=== PATIENT | male | born 1945 | race Caucasian/White ===

== ENCOUNTER → 2021-11-10 | Outpatient (CLI) | payer MEDICARE ==
[~2021-11-10] MED LIST: TAMS.4ER PO
== END | disposition home or self-care (01) ==
LOC: LAB SHORT 12:53
DX: L82.0 Inflamed seborrheic keratosis (principal)
CPT/HCPCS: 88305

== ENCOUNTER 2022-02-28 23:14 | Observation (INO) | payer MEDICARE ==
[~2022-02-28] VITALS: Ht 170.2 cm; Wt 81.7 kg
[2022-02-28 23:36] LABS: BASOPHILS ABSOLUTE AUTO 0.06 K/mm3 (0.00-0.23); BASOPHILS PERCENT AUTO 1 % (0-2); EOSINOPHILS ABSOLUTE AUTO 0.33 K/mm3 (0.00-0.68); EOSINOPHILS PERCENT AUTO 4 % (0-6); IMMATURE GRAN ABSOLUTE AUTO 0.03 K/mm3 (0.00-0.10); IMMATURE GRAN PERCENT AUTO 0 % (0-1); LYMPHOCYTES ABSOLUTE AUTO 2.47 K/mm3 (0.84-5.20); LYMPHOCYTES PERCENT AUTO 30 % (21-46); MONOCYTES ABSOLUTE AUTO 0.87 K/mm3 (0.16-1.47); MONOCYTES PERCENT AUTO 11 % (4-13); Mean Corpuscular HGB 30.6 pg (26.0-34.0); Mean Corpuscular HGB Conc 34.1 g/dL (31.5-36.5); Mean Corpuscular Volume 90 fL (80-100); Mean Platelet Volume 9.9 fL (9.1-12.4); NEUTROPHILS ABSOLUTE AUTO 4.48 K/mm3 (1.96-9.15); NEUTROPHILS PERCENT AUTO 54 % (41-73); Platelet Count 223 K/mm3 (150-400); RDW Standard Deviation 42.1 fL (35.1-46.3); Red Blood Cell Count 4.57 M/mm3 (4.30-5.90); White Blood Cell Count 8.24 K/mm3 (4.00-11.30)
[2022-02-28 23:48] LABS: Albumin, Blood 4.3 g/dL (3.4-5.0); Albumin/Globulin Ratio 1.3 (0.8-1.8); Bilirubin, Total 0.9 mg/dL (0.1-1.0); Bun/Creatinine Ratio 19.2 (12.0-20.0); Calcium, Blood 9.5 mg/dL (8.5-10.1); Creatinine, Blood 0.94 mg/dL (0.60-1.20); Globulin, Blood 3.2 g/dL (2.2-4.0); Potassium, Blood 3.3 mmol/L (3.5-5.5); Total Protein, Blood 7.5 g/dL (6.4-8.2)
[2022-03-01] MEDS ORDERED: METO100ER PO (01:47)
[2022-03-01] MEDS ORDERED: ATOR80 PO (01:47)
[2022-03-01] MEDS ORDERED: Enalapril Male2.5 MG PO (01:47)
[2022-03-01] MEDS ORDERED: Aspir 8181 MG PO (01:48)
[2022-03-01] MEDS ORDERED: GLUCHON PO (01:48)
[2022-03-01] MEDS ORDERED: Saw Palmetto160 MG PO (01:50)
--- NOTE | 2022-03-01 04:52 | NUR ---
ADMISSION NOTE PT ADMITTED FROM ED AT 0230. NS STARTED AT 75ML/HR. PT INDEPENDENT IN THE ROOM. PLEASANT AND COOPERATIVE. PT BEGAN HAVING L SIDED CP AT 2130 LAST NIGHT. PT HAS BEEN HAVING SOME RECENT STRESS. 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 PT ON TELE, SINUS IN 60'S-70'S.
[2022-03-01 08:02] LABS: BASOPHILS ABSOLUTE AUTO 0.06 K/mm3 (0.00-0.23); BASOPHILS PERCENT AUTO 1 % (0-2); EOSINOPHILS ABSOLUTE AUTO 0.29 K/mm3 (0.00-0.68); EOSINOPHILS PERCENT AUTO 6 % (0-6); Hematocrit 45.4 % (37.0-53.0); IMMATURE GRAN ABSOLUTE AUTO 0.02 K/mm3 (0.00-0.10); IMMATURE GRAN PERCENT AUTO 0 % (0-1); LYMPHOCYTES ABSOLUTE AUTO 1.52 K/mm3 (0.84-5.20); LYMPHOCYTES PERCENT AUTO 29 % (21-46); MONOCYTES ABSOLUTE AUTO 0.37 K/mm3 (0.16-1.47); MONOCYTES PERCENT AUTO 7 % (4-13); Mean Corpuscular HGB 30.4 pg (26.0-34.0); Mean Corpuscular Volume 92 fL (80-100); Mean Platelet Volume 9.7 fL (9.1-12.4); NEUTROPHILS ABSOLUTE AUTO 3.06 K/mm3 (1.96-9.15); NEUTROPHILS PERCENT AUTO 57 % (41-73); Platelet Count 221 K/mm3 (150-400); RDW Standard Deviation 43.3 fL (35.1-46.3); Red Blood Cell Count 4.94 M/mm3 (4.30-5.90); White Blood Cell Count 5.32 K/mm3 (4.00-11.30)
[2022-03-01 08:15] LABS: CPK Creatine Kinase 232 U/L (39-308)
[2022-03-01 08:22] LABS: Albumin, Blood 4.4 g/dL (3.4-5.0); Albumin/Globulin Ratio 1.3 (0.8-1.8); Bilirubin, Total 1.3 mg/dL (0.1-1.0); Bun/Creatinine Ratio 14.4 (12.0-20.0); Calcium, Blood 9.7 mg/dL (8.5-10.1); Creatinine, Blood 0.9 mg/dL (0.60-1.20); Globulin, Blood 3.4 g/dL (2.2-4.0); Potassium, Blood 4.1 mmol/L (3.5-5.5); Total Protein, Blood 7.8 g/dL (6.4-8.2)
[2022-03-01 15:58] LABS: CPK Creatine Kinase 179 U/L (39-308)
--- NOTE | 2022-03-01 17:46 | NUR ---
DAY SHIFT SUMMARY 76 YR OLD MALE PT WHO CAME IN WITH CHEST PAIN. TROPONINS GOING FROM 293 TO 433 TO 343 SINCE ARRIVAL. CARDIAC CONSULT TODAY. 1 DAY STRESS TEST SCHEDULED FOR TOMORROW. PT EXPERIENCED A 10 BEAT RUN OF V-TACH AT 1330 TODAY WITH OUT SYMPTOM. PT TO BE NPO AFTER MIDNING AND NO CAFFIEN AFTER 1999. ATIVAN ADDED TO EMAR DUE TO ANXIETY. PT STATES HE BELIEVES HIS LEVEL OF ANXIETY IS CONTRIBUTING TO ELEVEATED BP AND CHEST PAIN, BUT HAS BEEN UNADDRESSED UNTIL NOW. PER PT HE HAS NOT BEEN MEDICATED IN THE PAST FOR ANXIETY. TELE WITH NSR AT 73. CALL LIGHT WITHIN REACH AND ABLE TO CALL APPROPRIATELY.
--- NOTE | 2022-03-01 22:42 | NUR ---
NURSE NOTE: MAEVE JADE CONTACTED TO CLARIFY APPROPRIATE TO ADMINISTER SCHEDULED VASOTEC WITH PENDING STRESS TEST SCHEDULED IN THE MORNING. APPROVED APPROPRIATE TO ADMINISTER THIS MEDICATION AT THIS TIME.
--- NOTE | 2022-03-02 05:14 | NUR ---
SHIFT SUMMARY: PATIENT A/O X4, ADLIB IN ROOM, CALLS APPROPRIATELY. NO CHEST PAIN THROUGHOUT THE NIGHT. NO CAFFEINE GIVEN AND NPO POST MIDNIGHT FOR PENDING STRESS TEST.
[2022-03-02] MEDS ORDERED: ENAL10 PO (16:11)
[2022-03-02] MEDS ORDERED: OMEP20ER PO (16:12)
[2022-03-02] MEDS ORDERED: FURO20 PO (16:12)
--- NOTE | 2022-03-02 17:15 | NUR ---
DC HOME PT DC'D HOME. PIV DC'D WITH CATH TIP INTACT. NO REDNESS OR SWELLING AT SITE. DC INSTRUCTIONS GIVEN TO PT. ALL QUESTIONS & CONCERNS ANSWERED. NEW MEDICATIONS FAXED TO [facility].
== END 2022-03-02 17:10 | disposition home or self-care (01) ==
LOC: ER 23:14 → MEDS 23:15
PROVIDERS: Emergency Medicine; ADMIT Internal Medicine
DX: R07.2 Precordial pain (principal); I25.2 Old myocardial infarction; E87.6 Hypokalemia; I25.10 Atherosclerotic heart disease of native coronary artery without angina pectoris; I10 Essential (primary) hypertension; F41.1 Generalized anxiety disorder; Z88.8 Allergy status to other drugs, medicaments and biological substances; Z87.891 Personal history of nicotine dependence; Z95.1 Presence of aortocoronary bypass graft; I49.3 Ventricular premature depolarization
CPT/HCPCS: 36415; 71045; 78452; 80053; 82550; 83880; 84484; 85025; 93005; 93010; 93017; 96372; 96374; 96375; 99285-25; A9270; A9500; G0378; J0280; J0706; J1650; J2270; J2405; J2785; J7030

== ENCOUNTER 2022-04-11 18:26 | Emergency (ER) | payer MEDICARE ==
[~2022-04-11] VITALS: Ht 170.2 cm; Wt 79.4 kg
[~2022-04-11 18:26] MED LIST changes: +ATOR80 PO; +Aspir 8181 MG PO; +ENAL10 PO; +Enalapril Male2.5 MG PO; +FURO20 PO; +GLUCHON PO; +METO100ER PO; +OMEP20ER PO; +Saw Palmetto160 MG PO
[2022-04-11] MEDS ORDERED: KLOR-CON M1010 MEQ PO (18:40)
[2022-04-11 18:55] LABS: BASOPHILS ABSOLUTE AUTO 0.08 K/mm3 (0.00-0.23); BASOPHILS PERCENT AUTO 1 % (0-2); EOSINOPHILS PERCENT AUTO 5 % (0-6); Hematocrit 43.4 % (37.0-53.0); Hemoglobin 14.7 g/dL (13.5-17.5); IMMATURE GRAN ABSOLUTE AUTO 0.03 K/mm3 (0.00-0.10); IMMATURE GRAN PERCENT AUTO 0 % (0-1); LYMPHOCYTES ABSOLUTE AUTO 2.63 K/mm3 (0.84-5.20); LYMPHOCYTES PERCENT AUTO 30 % (21-46); MONOCYTES PERCENT AUTO 8 % (4-13); Mean Corpuscular HGB 29.9 pg (26.0-34.0); Mean Corpuscular HGB Conc 33.9 g/dL (31.5-36.5); Mean Corpuscular Volume 88 fL (80-100); Mean Platelet Volume 9.8 fL (9.1-12.4); NEUTROPHILS ABSOLUTE AUTO 4.84 K/mm3 (1.96-9.15); NEUTROPHILS PERCENT AUTO 56 % (41-73); Platelet Count 227 K/mm3 (150-400); RDW Coefficient Variation 12.8 % (11.7-14.2); RDW Standard Deviation 41.5 fL (35.1-46.3); Red Blood Cell Count 4.92 M/mm3 (4.30-5.90); White Blood Cell Count 8.68 K/mm3 (4.00-11.30)
== END 2022-04-11 23:08 | disposition home or self-care (01) ==
LOC: ER 18:26
PROVIDERS: Student in an Organized Health Care Education/Training Program
DX: I10 Essential (primary) hypertension (principal); E78.5 Hyperlipidemia, unspecified; I25.2 Old myocardial infarction; I25.10 Atherosclerotic heart disease of native coronary artery without angina pectoris; Z95.1 Presence of aortocoronary bypass graft; Z88.8 Allergy status to other drugs, medicaments and biological substances; Z79.899 Other long term (current) drug therapy; Z79.82 Long term (current) use of aspirin
CPT/HCPCS: 36415; 71046; 83690; 84484; 85025; 93005; 93010; 99284-25; A9270

== ENCOUNTER 2024-11-12 11:41 | Inpatient (IN) | payer MEDICARE, OTHER ==
[~2024-11-12] VITALS: Ht 172.7 cm; Wt 93.5 kg
[~2024-11-12 11:41] MED LIST changes: +KLOR-CON M1010 MEQ PO
[2024-11-12 12:18] LABS: BASOPHILS ABSOLUTE AUTO 0.09 K/mm3 (0.00-0.23); BASOPHILS PERCENT AUTO 1 % (0-2); EOSINOPHILS ABSOLUTE AUTO 0.32 K/mm3 (0.00-0.68); EOSINOPHILS PERCENT AUTO 5 % (0-6); Hematocrit 41.1 % (37.0-53.0); Hemoglobin 14.1 g/dL (13.5-17.5); IMMATURE GRAN ABSOLUTE AUTO 0.02 K/mm3 (0.00-0.10); IMMATURE GRAN PERCENT AUTO 0 % (0-1); LYMPHOCYTES ABSOLUTE AUTO 1.79 K/mm3 (0.84-5.20); LYMPHOCYTES PERCENT AUTO 26 % (21-46); MONOCYTES ABSOLUTE AUTO 0.69 K/mm3 (0.16-1.47); MONOCYTES PERCENT AUTO 10 % (4-13); Mean Corpuscular HGB 31.3 pg (26.0-34.0); Mean Corpuscular HGB Conc 34.3 g/dL (31.5-36.5); Mean Corpuscular Volume 91 fL (80-100); Mean Platelet Volume 9.8 fL (9.1-12.4); NEUTROPHILS ABSOLUTE AUTO 3.94 K/mm3 (1.96-9.15); NEUTROPHILS PERCENT AUTO 58 % (41-73); Platelet Count 214 K/mm3 (150-400); RDW Coefficient Variation 13.2 % (11.7-14.2); RDW Standard Deviation 43.3 fL (35.1-46.3); White Blood Cell Count 6.85 K/mm3 (4.00-11.30)
[2024-11-12 12:39] LABS: Albumin/Globulin Ratio 1.1 (0.8-1.8); Bun/Creatinine Ratio 17.3 (12.0-20.0); Creatinine, Blood 0.99 mg/dL (0.60-1.20); Globulin, Blood 3.5 g/dL (2.2-4.0); Potassium, Blood 4.1 mmol/L (3.5-5.5); Total Protein, Blood 7.5 g/dL (6.4-8.2)
[2024-11-12] MEDS ORDERED: Aspirin 81 MG Chew PO ONE (14:10)
[2024-11-12] MEDS ORDERED: Nitroglycerin 0.4 MG SUBL SL PRN (14:15)
[2024-11-12] MEDS ORDERED: Ondansetron HCl 2 MG / ML 2ML Vial IV PRN (19:35)
[2024-11-12 21:39] VITALS: BP 181/89
[2024-11-12] MEDS ORDERED: Carvedilol 6.25 MG Tab PO SCH (22:00)
[2024-11-12] MEDS ORDERED: Isosorbide Mononitrate 30 MG TABCR PO SCH (22:00)
[2024-11-12] MEDS ORDERED: Clopidogrel Bisulfate 300 MG Cap PO ONE (22:00)
[2024-11-12] MEDS ORDERED: Clopidogrel Bisulfate 75 MG Tab PO ONE (22:35)
[2024-11-12 23:30] LABS: Anti-Xa UFH, PHA Monitoring <0.10 IU/mL; International Normalized Ratio 1.02; Prothrombin Time Results 10.9 Sec (9.7-11.5)
[2024-11-12] MEDS ORDERED: Dose Adjust by Pharmacy XX STA (23:32)
[2024-11-12] MEDS ORDERED: Heparin Sodium 5000 Units/ML 1ML MDV IV ONE (23:35)
[2024-11-12] MEDS ORDERED: Heparin Sodium,Porcine/0.5 NS 500 ML IV SCH (23:35)
[2024-11-13] VITALS (15 sets, daily range): BP systolic 96–139; BP diastolic 54–87
--- NOTE | 2024-11-13 00:47 | NUR ---
TRANSFER SUMMARY: PT AOX4 IND, STOOD UP AND TRANSFERRED SELF INTO BED. ABLE TO PROVIDE ACCURATE INFORMATION AND TOLERATING MEDICATIONS WELL. ORIENTED TO ROOM, AND INSTRUCTED TO CALL IF ANY CHANGES IN THEIR CP OR IF ANY OTHER CONDITIONS ARISE. PT FOLLOWS COMMANDS AND ABLE TO MAKE NEEDS KNOWN. HEPARIN DRIP STARTED PER PHARMACY. PT RESTING IN BED, BED IN LOWEST POSITION CALL LIGHT IN REACH.
--- NOTE | 2024-11-13 05:08 | NUR ---
SHIFT SUMMARY: PT AOX4 PLEASANT MOOD AND AFFECT. CURRENTLY ON A HEPARIN DRIP. PT TOLERATING MEDICATIONS WELL. SLEPT THROUGH THE NIGHT WITH NO COMPLAINTS. HAD A 6 RUN OF V TACH, BUT OTHERWISE UN EVENTFUL NIGHT. PT IS IND IN THE ROOM AND CALLS APPROPRIATELY. IS ABLE TO MAKE NEEDS KNOWN. PT IN BED SLEEPING, BED IN LOWEST POSITION, CALL LIGHT IN REACH. CONTINUING CARE.
[2024-11-13 06:19] LABS: Hematocrit 37.5 % (37.0-53.0); Hemoglobin 12.8 g/dL (13.5-17.5); Mean Platelet Volume 9.8 fL (9.1-12.4); Platelet Count 204 K/mm3 (150-400)
[2024-11-13] MEDS ORDERED: Clopidogrel Bisulfate 75 MG Tab PO SCH (07:00)
[2024-11-13] MEDS ORDERED: Dose Adjust by Pharmacy XX STA (07:07)
[2024-11-13] MEDS ORDERED: Aspirin 81 MG Chew PO SCH (09:00)
[2024-11-13] MEDS ORDERED: Atorvastatin 40 MG Tab PO SCH (09:00)
[2024-11-13] MEDS ORDERED: Metoprolol Succinate 50 MG TABCR PO SCH (09:00)
[2024-11-13] MEDS ORDERED: Enoxaparin 40 MG/0.4 ML SYR SC SCH (09:00)
[2024-11-13] MEDS ORDERED: Heparin Sodium 1000 Units/ML 10ML MDV ONE (11:01)
[2024-11-13] MEDS ORDERED: NS 250 ML IV ONE (11:01)
[2024-11-13] MEDS ORDERED: NS 1,000 ML IV ONE ×2 (11:01→11:54)
[2024-11-13] MEDS ORDERED: FentaNYL Citrate 50 MCG/ML 2 ML Injection ONE (11:53)
[2024-11-13] MEDS ORDERED: Midazolam HCl 1MG / ML 2ML Vial ONE (11:54)
--- NOTE | 2024-11-13 13:30 | NUR ---
PATIENT TO RECOVERY ROOM AT 1315 S/P CORONARY ANGIOGRAM. PT AWAKE AND ALERT, DENIES C/O PAIN/CHEST PAIN. ANGIOSEAL TO RIGHT GROIN, WNL. SITE SOFT, NONTENDER, WITHOUT SWELLING OR BLEEDING. +2 PULSES TO RIGHT DP/PT. PT SUPINE. VSS.
--- NOTE | 2024-11-13 13:51 | NUR ---
PT LAYING FLAT, FOLLOWING DIRECTIONS. PT GIVEN ICE CHIPS, REFUSING FOOD AT THIS TIME. R GORIN SOFT, NON-TENDER, NO BLEEDING OR HEMATOMA NOTED. VSS. WAITING FOR PCU BED.
--- NOTE | 2024-11-13 14:19 | NUR ---
R GROIN SITE SOFT,NON TENDER. PT SAT UP AT 30 DEGREES. PT EATING SNACKS. HEAT PAD TO R SHOULDER FOR CHRONIC PAIN CONTROL. DENIES OTHER NEEDS AT THIS TIME.
--- NOTE | 2024-11-13 15:00 | NUR ---
PT TX TO PCU WITH MONTIOR IN PLACE. PT ALERT AND ORIENTED. R GROIN SITE SOFT, NON TENDER. REPORT GIVEN TO FRANCES JANG, SITE REVIEWED.
--- NOTE | 2024-11-13 15:15 | NUR ---
Pt received from [facility], alert, oriented and conversant. Transferred from stretcher to the bed in PCU 1 while keeping HOB less than 30 degrees and legs straight. Normal sinus rhythm noted by telemetry, and vital signs stable. Pt denies pain except for right shoulder which was relieved somewhat after transfer and pt was provided a heating pad for relief. Pt has chronic shoulder problem he says but it got worse during angiogram. Right groin site per report has angioseal and the pt has been in recovery in [facility] for 2 hours upon arrival to PCU 1. Groin site is without bruising, bleeding nor hematoma. Soft and non tender, with distal pulses palpable and brisk cap refill in bilateral lower extremities. Pt was instructed to keep HOB no higher than 30 degress and ongoing recovery will take about 4 hours before he can get up out of bed. States that he already ate; given ice water and also accessible urinal to void if needed. Call light is within reach. Dr. Kahn was here and spoke with the patient.
--- NOTE | 2024-11-13 16:00 | NUR ---
arrival to pcu patient arrived to pcu from [facility] [employer] [facility] [employer] with a right groin site that is soft nontender, no bleeding, no hematoma, or swelling. patient had been recovered for two hours at [facility] [employer] [facility] [employer] with only two hours remaining until patient can get up. patient head of bed has been elevated and site remains soft nontender with no bleeding or hematoma. patient vital signs stable and tele sinus rhythm 60s. patient is alert and oriented x4. neuro is intact. perrla. patient uses a cane or walker at baseline as needed and has this equipment at home. lung sounds clear throughout. patient voids independently using a bedside urinal. see shift assessment for further detials. plan remains up to date at this time
--- NOTE | 2024-11-13 17:05 | NUR ---
shift summary vital signs remains stable. right groin site remains unchanged, soft nontender, no hematoma swelling or bleeding. no acute changes since arrival see previous notes. plan remains up to date
--- NOTE | 2024-11-13 17:30 | NUR ---
"Spiritual Care | Pt. Request Pt. is in bed and welcomes my visit. Pt. verbalizes gratitude for the spiritual care visit but also verbalizes that his dinner just arrived and he is a practiciing Jew. Mary with interest and empathy. This electrical fitter asked the Pt. if he would like me to contact the [employer] Sales Representative. Pt. declined but verbalized gratitude for the good work the chaplains are doing."
[2024-11-14 00:21] VITALS: BP 138/74
[2024-11-14 04:17] LABS: BASOPHILS ABSOLUTE AUTO 0.05 K/mm3 (0.00-0.23); BASOPHILS PERCENT AUTO 1 % (0-2); EOSINOPHILS ABSOLUTE AUTO 0.24 K/mm3 (0.00-0.68); EOSINOPHILS PERCENT AUTO 5 % (0-6); Hematocrit 36.8 % (37.0-53.0); Hemoglobin 12.6 g/dL (13.5-17.5); IMMATURE GRAN ABSOLUTE AUTO 0.02 K/mm3 (0.00-0.10); IMMATURE GRAN PERCENT AUTO 0 % (0-1); LYMPHOCYTES ABSOLUTE AUTO 0.92 K/mm3 (0.84-5.20); LYMPHOCYTES PERCENT AUTO 18 % (21-46); MONOCYTES ABSOLUTE AUTO 0.53 K/mm3 (0.16-1.47); MONOCYTES PERCENT AUTO 11 % (4-13); Mean Corpuscular HGB 31.1 pg (26.0-34.0); Mean Corpuscular HGB Conc 34.2 g/dL (31.5-36.5); Mean Corpuscular Volume 91 fL (80-100); Mean Platelet Volume 9.8 fL (9.1-12.4); NEUTROPHILS ABSOLUTE AUTO 3.23 K/mm3 (1.96-9.15); NEUTROPHILS PERCENT AUTO 65 % (41-73); Platelet Count 173 K/mm3 (150-400); RDW Standard Deviation 42.6 fL (35.1-46.3); Red Blood Cell Count 4.05 M/mm3 (4.30-5.90); White Blood Cell Count 4.99 K/mm3 (4.00-11.30)
[2024-11-14 04:45] LABS: Albumin, Blood 3.4 g/dL (3.4-5.0); Albumin/Globulin Ratio 1.1 (0.8-1.8); Bilirubin, Total 1.2 mg/dL (0.1-1.0); Bun/Creatinine Ratio 16.9 (12.0-20.0); Calcium, Blood 8.9 mg/dL (8.5-10.1); Creatinine, Blood 0.95 mg/dL (0.60-1.20); Potassium, Blood 4.1 mmol/L (3.5-5.5); Total Protein, Blood 6.4 g/dL (6.4-8.2)
[2024-11-14 05:38] VITALS: BP 152/74
--- NOTE | 2024-11-14 06:20 | NUR ---
PT STABLE THROUGHOUT THE SHIFT. NO C/O CHEST PAIN OR DYSPNEA. PT AOX4, IND/SBA. RT GROIN ANGIO SITE REMAINS CLEAN/DRY/INTACT W/O S/S HEMATOMA/BLEEDING. DISTAL CMS INTACT.
[2024-11-14 07:19] VITALS: BP 146/76
[2024-11-14] MEDS ORDERED: CARV6.25 PO (09:45)
[2024-11-14 11:00] VITALS: BP 124/71
[2024-11-14] MEDS ORDERED: Isosorbide Mono30 MG PO (11:00)
--- NOTE | 2024-11-14 11:09 | NUR ---
discharge note this rn assumed care at 0700. vital signs stable. tele sinus rhythm first degree 80s. patient is alert and oriented x4. neuro is intact. perrla. patient is independent in the room. patient is able to make needs known and uses call light appropriately. patient denies pain, chest pain/pressure or shortness of breath. see shift assessment for further detials. right groin site is soft nontender no hematoma present. Md Mancilla in to see patient and discussed plans to go home today and medications to take. This rn spoke with MD EID and updated MD Mancilla on meds to continue at discharge. Discharge orders placed. This rn went over discharge with patient and new medications, medications to stop, and follow up appointments. patient verbalized understanding. patient left with all belongings and in no distress.
== END 2024-11-14 11:08 | disposition home or self-care (01) | DRG 287 ==
LOC: ER 11:41 → MEDS 11:42 → ERHOLD 11:42 → MEDS 21:34 → PCU 11-13 14:39 → ENPENDDIS 11-14 12:00
PROVIDERS: Family Medicine; Physician Assistant; Student in an Organized Health Care Education/Training Program; ADMIT Internal Medicine
PROC: B2111ZZ Fluoroscopy of Multiple Coronary Arteries using Low Osmolar Contrast (ICD-10-PCS; principal; 2024-11-13)
PROC: 4A023N7 Measurement of Cardiac Sampling and Pressure, Left Heart, Percutaneous Approach (ICD-10-PCS; 2024-11-13)
PROC: B2121ZZ Fluoroscopy of Single Coronary Artery Bypass Graft using Low Osmolar Contrast (ICD-10-PCS; 2024-11-13)
PROC: B2181ZZ Fluoroscopy of Left Internal Mammary Bypass Graft using Low Osmolar Contrast (ICD-10-PCS; 2024-11-13)
DX: R07.89 Other chest pain (principal); I50.32 Chronic diastolic (congestive) heart failure; I47.20 Ventricular tachycardia, unspecified; I25.10 Atherosclerotic heart disease of native coronary artery without angina pectoris; E78.5 Hyperlipidemia, unspecified; E11.9 Type 2 diabetes mellitus without complications; I11.0 Hypertensive heart disease with heart failure; G56.03 Carpal tunnel syndrome, bilateral upper limbs; I87.2 Venous insufficiency (chronic) (peripheral); F41.9 Anxiety disorder, unspecified; I25.82 Chronic total occlusion of coronary artery; R79.89 Other specified abnormal findings of blood chemistry; I44.0 Atrioventricular block, first degree; Z95.5 Presence of coronary angioplasty implant and graft; Z88.8 Allergy status to other drugs, medicaments and biological substances; Z79.82 Long term (current) use of aspirin; I25.2 Old myocardial infarction
CPT/HCPCS: 36415; 71046; 76937; 80053; 84484; 85014; 85018; 85025; 85049; 85520; 85610; 85730; 93308; 93321; 93459; 96374; 99152; 99153; 99285-25; A9270; C1760; C1769; C1894; G0378; J1644; J2250; J3010; J7030; J7050; Q9967

== ENCOUNTER → 2024-12-18 | Outpatient (CLI) | payer MEDICARE, OTHER ==
[~2024-12-18] MED LIST changes: +CARV6.25 PO; +Isosorbide Mono30 MG PO
== END | disposition home or self-care (01) ==
LOC: LAB SHORT 08:09 → PLD 08:09 → LAB 08:09
DX: L60.2 Onychogryphosis (principal); B35.1 Tinea unguium
CPT/HCPCS: 88305; 88312

== ENCOUNTER → 2025-02-20 | Outpatient (CLI) | payer MEDICARE, OTHER ==
[2025-02-20 17:40] LABS: Microalb/Creat Ratio UR, Rand 11.233 mg/g (0.000-30.000); Microalbumin, Random Urine 16.4 mg/L (0.000-20.000)
== END ==
LOC: LAB 10:54 → LAB SHORT 10:54
PROVIDERS: Family Medicine
DX: E11.9 Type 2 diabetes mellitus without complications (principal)
CPT/HCPCS: 82043; 82570

== ENCOUNTER 2025-03-17 10:07 | Day surgery (SDC) | payer MEDICARE, OTHER ==
[~2025-03-17] VITALS: Ht 170.2 cm; Wt 82.5 kg
[~2025-03-17 10:07] MED LIST changes: +Balanced Salt Epinephrine Irrigation Solution 500 mL IR SCH; +Moxifloxacin HCL 0.5 MG/0.1 ML 0.4MLSYR RIGHTEYE SCH; +Ondansetron 4 MG SoluTab MM PRN; +PHENYLEPHRINE\\TROPICAMIDE\\TETRACAINE OPHTHALMIC DILATING SOLN RIGHTEYE PRN; +Povidone-Iodine 450 DROP/30 ML Solution ONE; +Povidone-Iodine 450 DROP/30 ML Solution RIGHTEYE SCH; +Tetracaine HCl/Pf 0.5% Opth Soln 4 ml ONE; +diazePAM 5 MG,diazePAM 2 MG PO SCH
--- NOTE | 2025-03-17 11:12 | NUR ---
03/17/25 1112 Shi Patel 1107 BP 128/68, HR 66, O2 AT 100%, RESP 16
[2025-03-17 11:23] VITALS: BP 124/76
== END 2025-03-17 11:35 | disposition home or self-care (01) ==
LOC: ORSCSDS 10:07
PROVIDERS: Student in an Organized Health Care Education/Training Program
PROC: 08RJ3JZ Replacement of Right Lens with Synthetic Substitute, Percutaneous Approach (ICD-10-PCS; principal; 2025-03-17 11:30)
DX: E11.36 Type 2 diabetes mellitus with diabetic cataract (principal); H25.813 Combined forms of age-related cataract, bilateral; E78.5 Hyperlipidemia, unspecified; I10 Essential (primary) hypertension; Z87.891 Personal history of nicotine dependence; Z79.82 Long term (current) use of aspirin; Z79.899 Other long term (current) drug therapy
CPT/HCPCS: A9270; V2632

== ENCOUNTER 2025-03-24 09:50 | Day surgery (SDC) | payer MEDICARE ==
[~2025-03-24] VITALS: Ht 170.2 cm; Wt 84.7 kg
[~2025-03-24 09:50] MED LIST changes: +Moxifloxacin HCL 0.5 MG/0.1 ML 0.4MLSYR LEFTEYE SCH; -Moxifloxacin HCL 0.5 MG/0.1 ML 0.4MLSYR RIGHTEYE SCH; +PHENYLEPHRINE\\TROPICAMIDE\\TETRACAINE OPHTHALMIC DILATING SOLN LEFTEYE PRN; -PHENYLEPHRINE\\TROPICAMIDE\\TETRACAINE OPHTHALMIC DILATING SOLN RIGHTEYE PRN; +Povidone-Iodine 450 DROP/30 ML Solution LEFTEYE SCH; -Povidone-Iodine 450 DROP/30 ML Solution RIGHTEYE SCH
--- NOTE | 2025-03-24 10:47 | NUR ---
03/24/25 1047 Lico Mcdonnell CALL LIGHT WITHIN REACH. EYE DROPS IN AROUND 1042. PT ON CONTINOUS PULSE OXIMETER FOR MONITORING.
--- NOTE | 2025-03-24 11:34 | NUR ---
03/24/25 1134 Caren Leyva VITALS AT 1130 BP: 142/94 O2: 100% WITH BLOW BY OXYGEN AT 6 LITERS P: 61
--- NOTE | 2025-03-24 11:53 | NUR ---
03/24/25 1153 Gaby Salvador CALLED [facility] UP THE YUMA FOR RIDE BACK TO [facility]. STAFF UNABLE TO GIVE ME AN ESTIMATED TIME OF ARRIVAL
[2025-03-24 11:54] VITALS: BP 134/76
== END 2025-03-24 12:35 | disposition home or self-care (01) ==
LOC: ORSCSDS 09:50
PROVIDERS: Student in an Organized Health Care Education/Training Program
PROC: 08RK3JZ Replacement of Left Lens with Synthetic Substitute, Percutaneous Approach (ICD-10-PCS; principal; 2025-03-24 11:30)
DX: E11.36 Type 2 diabetes mellitus with diabetic cataract (principal); H25.812 Combined forms of age-related cataract, left eye; Z96.1 Presence of intraocular lens; Z87.891 Personal history of nicotine dependence; I10 Essential (primary) hypertension; I25.2 Old myocardial infarction; E78.5 Hyperlipidemia, unspecified; Z79.899 Other long term (current) drug therapy
CPT/HCPCS: A9270; V2632